=== PATIENT | male | born 1950 | race Two or more races ===

== ENCOUNTER → 2024-10-24 | Outpatient (CLI) | payer MEDICARE, MEDICAID, SELFPAY ==
--- NOTE | 2024-10-24 09:30 | XR_ITS ---
Examination: Transabdominal prostate sonography TECHNIQUE: Multiple transabdominal sonographic images prostate Exam date and time: October 24, 2024 0935 hours INDICATIONS: Elevated PSA and laboratory examination a few weeks ago. FINDINGS: Prostate 4.4 x 3.5 x 5.0 cm volume 41.1 cm No prostate nodules IMPRESSION: Mild prostatomegaly No prostate nodules
== END | disposition home or self-care (01) ==
LOC: CDIM 09:24
PROVIDERS: PCP Family Medicine; Referring Provider Physician Assistant; Visit Provider Physician Assistant
DX: R97.20 Elevated prostate specific antigen [PSA] (principal)
CPT/HCPCS: 76873